=== PATIENT | male | born 1940 | race Caucasian/White ===

== ENCOUNTER → 2023-12-30 09:13 | Outpatient (REF) | payer OTHER, SELFPAY | LOC: HWRCS 09:13 | PROVIDERS: ATTENDING PHYSICIAN Internal Medicine; FAMILY PHYSICIAN Internal Medicine | DX: I35.0 Nonrheumatic aortic (valve) stenosis (principal) | CPT/HCPCS: 93306 ==

== ENCOUNTER → 2024-08-02 06:58 | Outpatient (REF) | payer OTHER, SELFPAY | LOC: MRI 3T 06:58 | PROVIDERS: ATTENDING PHYSICIAN Orthopaedic Surgery; FAMILY PHYSICIAN Internal Medicine | DX: M25.511 Pain in right shoulder (principal) | CPT/HCPCS: 73221 ==

== ENCOUNTER → 2024-12-27 10:13 | Outpatient (REF) | payer OTHER, SELFPAY | LOC: HWRCS 10:13 | PROVIDERS: ATTENDING PHYSICIAN Nurse Practitioner; FAMILY PHYSICIAN Internal Medicine | DX: I25.10 Atherosclerotic heart disease of native coronary artery without angina pectoris (principal); I10 Essential (primary) hypertension; E78.00 Pure hypercholesterolemia, unspecified; I35.0 Nonrheumatic aortic (valve) stenosis | CPT/HCPCS: 93306 ==

== ENCOUNTER 2025-03-25 12:34 | Emergency (ER) | payer OTHER, SELFPAY ==
[2025-03-25 12:40] VITALS: BP 113/82
[2025-03-25 13:01] LABS: Hematocrit 39.1 % (39.0-52.0); Hemoglobin 12.6 g/dL (13.0-18.0); Mean Corp Hgb Conc. 32.2 g/dL (33.0-37.0); Mean Corpuscular Volume 94.0 fL (80.0-94.0); Nucleated Red Blood Cells % 0 % (-); Platelet Count 276 10^3/uL (130-400); Red Cell Dist. Width 13.4 % (11.5-14.5)
[2025-03-25 13:02] VITALS: BMI 31.4
[2025-03-25 13:06] VITALS: BP 115/77
[2025-03-25 13:14] LABS: ALT (SGPT) 30 U/L (0-50); AST (SGOT) 27 U/L (17-59); Albumin 3.9 g/dl (3.5-5.0); Alkaline Phosphatase 59 U/L (38-126); Blood Urea Nitrogen 22 mg/dl (9-20); Calcium 9.4 mg/dl (8.4-10.2); Carbon Dioxide 25 mmol/L (22-30); Chloride 103 mmol/L (98-107); Estimated Creatinine Clearance 45 ml/min; Glucose 91 mg/dl (70-99); Potassium 4.0 mmol/L (3.5-5.1); Sodium 136 mmol/L (135-145); Total Protein 6.0 g/dl (6.3-8.2); eGFR 53.84
[2025-03-25 13:25] LABS: Troponin I 0.016 ng/ml
--- NOTE | 2025-03-25 13:27 | EDRN ---
Dr. Quezada in room w/ pt.
--- NOTE | 2025-03-25 13:37 | ED.GENMED ---
History of Present Illness
General
Chief Complaint: Heart Rate Problem
Source: patient and spouse
Exam Limitations: none
Time Seen by Provider: 03/25/25 13:25
History of Present Illness
History of Present Illness:
85-year-old male presenting with an episode of heart racing and feeling somewhat off at about 10 AM. Lasted 10 to 15 minutes. No acute chest pain shortness of breath diaphoresis syncope or near syncope. Feels better now. However has felt
slightly off recently. Some mild cough mild nasal congestion.
Past History
Past History
ED Past Medical History: CAD, Cancer, HTN, Hypercholesterolemia and Valvular disease
ED Past Surgical History: Cardiac (Cardiac stent), Tonsilectomy and Urological
Social History
Tobacco: Non-smoker
Alcohol: None
Drug: None
Personal:
Living: with family
Employment: Employed
Family History
Family History: Hypertension
Review of Systems
Review of Systems
All Other Systems: Not applicable
Constitutional: Denies fever
Respiratory: Denies trouble breathing
Cardiac: Denies chest pain or syncope
ABD/GI: Denies abdominal pain
Phy Exam
Physical Exam
Physical Exam:
GENERAL: Alert and oriented in no apparent distress
EYE: Orbits normal.
NECK: Supple, no significant adenopathy.
ENT: Pharynx without erythema
CARDIAC: Regular rate and rhythm with mild midsystolic murmur
LUNGS: Clear breath sounds,normal
ABDOMEN: Soft, without focal tenderness or distention
NEUROLOGICAL: Alert and oriented , grossly non-focal
SKIN: Warm and dry, no rash or lesion, no discoloration, skin intact.
MUSCULOSKELETAL: Trace bilateral pitting edema.
PSYCH: Normal and appropriate interaction.
Course
Orders/Labs/Results
Orders:
Orders
03/25/25 12:35
EKG [Electrocardiogram (*1)] Urgent
Reason for Study: Palpitations
EKG- Treatment ONCE
03/25/25 12:50
Complete Blood Count/With Diff Urgent
Comprehensive Metabolic Panel Urgent
TSH Reflex To Free T4 Urgent
Comment: ADD ON
Troponin I Urgent
03/25/25 13:36
CXR2 [CR Chest - 2 Views ] Urgent
Comment:
Reason For Exam: Tachycardic episodes/cough
03/25/25 13:37
Add On- LAB Urgent
Tests Added?: tsh reflex t4
03/25/25 14:22
COVID-19 Antigen Urgent
Source: Nasal Swab
Urinalysis Reflex To Culture Urgent
Date Specimen was Collected: 03/25/25
Time Specimen was Collected: 14:16
03/25/25 15:08
Electrocardiogram (*1) Stat
Reason for Study: Other
Other Reason for Exam: chest pain
EKG- Treatment ONCE
03/25/25 15:19
Troponin I Urgent
Abnormal Lab Results
03/25/25
12:50
WBC 13.3 H 10^3/uL
(4.8-10.8)
RBC 4.16 L 10^6/uL
(4.70-6.10)
Hgb 12.6 L g/dL
(13.0-18.0)
MCHC 32.2 L g/dL
(33.0-37.0)
Abs Immat Gran (auto) 0.1 H 10^3/uL
(0-0.05)
Absolute Neuts (auto) 9.9 H 10^3/uL
(1.4-6.5)
Absolute Monos (auto) 1.3 H 10^3/uL
(0.1-0.6)
Immature Gran % 0.8 H %
(0-0.5)
Lymphocytes % 14.5 L %
(20.5-51.1)
Monocytes % 9.9 H %
(1.7-9.3)
BUN 22 H mg/dl
(9-20)
Total Protein 6.0 L g/dl
(6.3-8.2)
03/25/25 12:50
03/25/25 12:50
Vital Signs
Initial and Last Documented VS:
Initial Vital Signs
Temp Pulse Resp BP Pulse Ox
98.0 F 100 16 113/82 98
03/25/25 12:40 03/25/25 12:40 03/25/25 12:40 03/25/25 12:40 03/25/25 12:40
Last Documented Vital Signs
Temp Pulse Resp BP Pulse Ox
98.0 F 86 18 113/82 96
03/25/25 12:40 03/25/25 15:45 03/25/25 15:45 03/25/25 15:00 03/25/25 15:45
MDM/Problems Addressed
Differential Diagnosis Includes:
Patient with a brief episode of a tachycardic rhythm. He states his heart rate was in the 120s. His checked his pulse at that time which was in the 60s. No chest pain no shortness of breath no pleuritic pain no syncope or near syncope.
Patient looks well now. He does have a mild leukocytosis and has some possible infectious/viral symptoms. We will continue to monitor him for the next few hours. Repeat his troponin and EKG for completeness. Nothing to suspect a pulmonary
emboli. We will check a urine chest x-ray and COVID.
*Pulse Oximetry
SaO2: 99
Oxygen Mode of Delivery: Room air
Patient hypoxic: no
*EKG
Interpreted by ED Provider?: Yes
Interpretation: abnormal
Comparison EKG: no changes
Heart Rate: 98
Rate: normal
Rhythm: sinus
Devon: left axis deviation
Interval: normal interval
QRS Pattern: normal QRS
Ischemia: no ischemia
*Critical Care Note
Total Time (30-74mins, 75-104mins- exclusive of procedures): Not Applicable
Data Reviewed
Review of Other/Old Records Reveals: Labs, Records, Testing and Other (Echocardiogram)
Update Note
Update Note:
Patient has remained stable and nontoxic. No arrhythmias. All testing is negative except for a nonspecific leukocytosis. Patient had no chest pain shortness of breath or syncope during this tachycardic episode. Discharged to follow-up
ED Attending Note
-
Portions of this chart may have been created with voice recognition software.� Occasional wrong word or��sound alike� substitutions may have occurred due to the inherent limitations of voice recognition software.
Discharge Plan
Departure
Patient Disposition: Home (Routine Discharge)
Date of Disposition: 03/25/25
Time of Disposition: 16:12
Patient with high blood pressure during this ER visit?: Yes
Discharge Problem:
Tachycardic episode, Nonspecific leukocytosis
Instructions: Palpitations (DC), BLOOD PRESSURE
Prescriptions:
No Action
pantoprazole 40 MG tablet,delayed release (DR/EC)
40 mg PO DAILY Qty: 90 3RF
atorvastatin 40 MG tablet
40 mg PO DAILY
fexofenadine [Tiff] 180 MG tablet
180 mg PO NOON
calcium carbonate 600 MG tablet
600 mg PO NOON
fluticasone propionate 1 SPRAY spray,suspension
1 spray intranasal BID
multivitamin with folic acid [Tab-A-Rajni] 1 TABLET tablet
1 tab PO NOON
cyanocobalamin (vitamin B-12) 1,000 MCG tablet
1,000 mcg PO NOON
albuterol sulfate [ProAir HFA] 8.5 GM HFA aerosol inhaler
1 puff inhalation Q4HPRN PRN (Reason: SOB)
cholecalciferol (vitamin D3) [Vitamin D3] 400 UNITS tablet
50 mcg PO NOON
rxunxnpgswh-cporebvxy-brzgzjgc [Trelegy Ellipta] 1 EACH blister with device
1 puff IH NOON
sennosides [senna] 1 TABLET tablet
2 tab PO BID 0RF
lidocaine [Aspercreme (lidocaine)] 1 PATCH adhesive patch,medicated
2 patch topical DAILY PRN (Reason: left knee pain ) Qty: 14 0RF
Rx Instructions:
Over the counter. Remove nightly.
Apply to sides of L knee. Do not place over incision.
aspirin 325 MG tablet
325 mg PO DAILY Qty: 28 0RF
Rx Instructions:
Take daily x4 weeks for blood clot prevention; then resume Aspirin 81 mg daily.
magnesium hydroxide 30 ML suspension
30 ml PO DAILYPRN PRN (Reason: constipation) Qty: 7 0RF
Rx Instructions:
Take as needed for constipation unrelieved by Colace and Senna.
ferrous sulfate [FeroSul] 325 MG tablet
325 mg PO DAILY Qty: 60 0RF
Rx Instructions:
Over the counter. Take daily due to history of iron deficiency anemia.
docusate sodium 100 MG capsule
100 mg PO BID 0RF
oxycodone 5 MG tablet
5 mg PO Q6HPRN PRN (Reason: moderate-severe pain) Qty: 30 0RF
Rx Instructions:
1 tab moderate pain or 2 if pain severe
Dx total joint replacement
ongoing therapy
acetaminophen 500 MG tablet
1,000 mg PO Q6H Qty: 60 0RF
Rx Instructions:
Do not exceed >4000 mg daily.
amlodipine 2.5 MG tablet
2.5 mg PO DAILY Qty: 0 0RF
Rx Instructions:
Hold if systolic blood pressure <130 while on Oxycodone.
lisinopril 5 MG tablet
5 mg PO DAILY Qty: 0 0RF
Rx Instructions:
Hold if systolic blood pressure <130 while on Oxycodone.
viqpgxvrfad-[id number]-Auutgjilu serr [Osteo Bi-Flex (5-Loxin)] 1 EACH tablet
1 tab PO NOON Qty: 0 0RF
Rx Instructions:
Resume in 1 week.
baclofen 10 MG tablet
10 mg PO HSPRN PRN (Reason: muscle spasms/insomnia) Qty: 7 0RF
Rx Instructions:
Take as needed for insomnia/muscle spasms at bedtime.
Referrals:
Jean Jack MD [Family Provider, Internal Medicine] - Follow up in 2-3 days
Activity Restrictions/Additional Instructions:
Call your bronzer for close follow-up
Return with any concerning episodes including recurring tachycardia, lightheadedness weakness fever chills chest pain shortness of breath or any other concerning symptoms
Interventions
Interventions:
*Risk Screen - Suicide Last Done: 03/25/25 13:04
*General Assessment Last Done: 03/25/25 13:03
*Neglect/Abuse Screening Last Done: 03/25/25 13:04
*ED- Fall Risk Assessment Last Done: 03/25/25 13:03
*ED COVID-19 Vaccine History Last Done: 03/25/25 13:03
*ED Influenza Vaccine History Last Done: 03/25/25 13:03
*Nursing Disposition Last Done: 03/25/25 16:25
ED- Cardiac Assessment Last Done: 03/25/25 13:09
ED- Pulmonary Assessment Last Done: 03/25/25 13:09
Discharge Date and Time
Discharge Date/Time: 03/25/25 16:26
Print Language: BAHAMIAN
--- NOTE | 2025-03-25 13:45 | EDRN ---
Pt given urine sample kit at this time.
[2025-03-25 14:21] VITALS: BP 126/80
[2025-03-25 14:37] LABS: Urine Character Clear (Clear)
[2025-03-25 14:52] LABS: COVID-19 Antigen Negative (Negative)
[2025-03-25 15:00] VITALS: BP 113/82
--- NOTE | 2025-03-25 15:20 | EDRN ---
Repeat troponin drawn and sent and repeat EKG done at this time.
[2025-03-25 16:04] LABS: Troponin I 0.015 ng/ml
--- NOTE | 2025-03-25 16:11 | EDRN ---
Dr. Quezada in room w/pt at this time.
== END 2025-03-25 16:26 | disposition home or self-care (01) ==
LOC: EMR 12:34
PROVIDERS: Emergency Medicine; EMERGENCY PHYSICIAN Emergency Medicine; FAMILY PHYSICIAN Internal Medicine
DX: R00.0 Tachycardia, unspecified (principal); D72.829 Elevated white blood cell count, unspecified; I25.10 Atherosclerotic heart disease of native coronary artery without angina pectoris; I10 Essential (primary) hypertension; E78.00 Pure hypercholesterolemia, unspecified; I38 Endocarditis, valve unspecified; Z82.49 Family history of ischemic heart disease and other diseases of the circulatory system; Z95.5 Presence of coronary angioplasty implant and graft
CPT/HCPCS: 99283; 71046; 80053; 81003; 84443; 84484; 85025; 87811; 93005